=== PATIENT | male | born 1955 | race Caucasian/White ===

== ENCOUNTER → 2021-12-01 11:08 | Outpatient (CLI) | payer MEDICARE, MEDICAID, SELFPAY ==
[2021-12-01 20:07] LABS: COVID19 - ORCAS (NP or Nasal) Negative (Negative)
== END ==
PROVIDERS: PCP Physician Assistant; Visit Provider Family Medicine
DX: Z20.822 Contact with and (suspected) exposure to COVID-19 (principal)
CPT/HCPCS: C9803; U0003

== ENCOUNTER 2021-12-03 07:35 | Day surgery (SDC) | payer MEDICARE, MEDICAID, SELFPAY ==
--- NOTE | 2021-12-03 | PATH_ITS ---
[facility] Accession Number: [id number] No. of containers..03 Tissue . 01 Material submitted: . PART A: cecum - CECAL PART B: colon - ASCENDING COLON POLYP PART C: colon - TRANSVERSE COLON POLYP . 02 Diagnosis: A. Cecum, Biopsy: Tubular adenoma. . B. Ascending Colon Polyp, Biopsy: Tubulovillous adenoma. Negative for high-grade dysplasia or malignancy. . C. Transverse Colon Polyp, Biopsy: Tubular adenoma. MRV 12/07/2021 1029 Local . 02 Electronically signed: . David Bangura MD, PhD, Pathologist NPI- [id number] . 01 Gross description: . Part A: CECAL: Received in formalin is 1 fragment(s) of aly, soft tissue measuring 0.3 x 0.1 x 0.1 cm submitted entirely in 1 cassette(s) Part B: ASCENDING COLON POLYP: Received in formalin is 1 fragment(s) of aly, soft tissue measuring 0.4 x 0.2 x 0.1 cm submitted entirely in 1 cassette(s) Part C: TRANSVERSE COLON POLYP: Received in formalin is 1 fragment(s) of aly, soft tissue measuring 0.3 x 0.3 x 0.2 cm submitted entirely in 1 cassette(s) /CPE 12/04/2021 1458 Local . 02 Pathologist provided ICD-10: D12.0, D12.2, D12.3 . 02 CPT . 758488, 091796, 756977 Specimen Comment: A courtesy copy of this report has been sent to [phone] Performed at: 01 [facility] [address] [place] [address] [address], [place], [place] [id number] MD Alvin Keenan MD Phone: [phone] Performed at: 02 [facility] [address] [place] [id number] MD Ольга Peña MD Phone: [phone]
[2021-12-03 08:23] VITALS: BP 152/92; PULSE 70; RESP 14; TEMP 36.5; O2SAT 99
[2021-12-03 08:24] VITALS: BMI 30.4
[2021-12-03] MEDS: LACTATED RINGERS 1,000 ML 42 ML IV (08:59)
--- NOTE | 2021-12-03 09:27 | PM.HP.1 ---
History of Present Illness History of Present Illness Date Patient Seen: 12/03/21 Time Patient Seen: 09:27 Chief complaint: COLONOSCOPY Narrative: 65-year-old man with a positive Cologuard test. Never had a colonoscopy before. He has never noticed blood or melena. Patient History Medical History (Updated 11/30/21 @ 09:47 by Cassi Vallejo PA-C) H/O gastroesophageal reflux (GERD) Myocardial infarction (~2018) Routine screening for STI (sexually transmitted infection) Screening for colon cancer Screening for prostate cancer Family & Social History Family History (Updated 10/27/21 @ 10:03 by Nia Smalls RN) Mother Hypertension Father Hypertension Stroke Prostate cancer Brother Hypertension Tobacco & Substance use: Smoking Status Former smoker alcohol intake never Substance Use Type does not use Meds Home Medications and Allergies Home Medications Medication Instructions Recorded Confirmed Type thiamine HCl (vitamin B1) 100 mg 100 mg PO DAILY 08/12/21 12/03/21 History tablet cholecalciferol (vitamin D3) 50 50 mcg PO DAILY 08/25/21 11/30/21 History mcg (2,000 unit) capsule carvedilol 12.5 mg tablet 12.5 mg PO BID tab 10/27/21 12/03/21 History lisinopril 20 mg tablet 20 mg PO BID tab 10/27/21 12/03/21 History magnesium amino acid chelate 100 100 mg PO DAILY tab 10/27/21 12/03/21 History mg tablet atorvastatin 20 mg tablet See Rx Instructions .ROUTE 11/19/21 12/03/21 Rx .COMPLEX #90 tab Allergies Allergy/AdvReac Type Severity Reaction Status Date / Time No Known Drug Allergies Allergy Verified 12/03/21 08:20 Exam Vital Signs (past 8 hours): - 12/03/21 08:23 Temperature 97.7 F Pulse Rate 70 Respiratory Rate 14 Blood Pressure 152/92 H Pulse Oximetry 99 Oxygen Delivery Method Room Air Const General: cooperative and healthy appearing Resp Effort & Inspection: normal respiratory effort Assessment & Plan Assessment and plan (1) Positive colorectal cancer screening using Cologuard test: Status: Acute Plan He would like to have his colonoscopy without sedation. We will proceed. COVID-19 COVID-19 status: Negative Result date/Date tested (Pos, Neg/Pending): 12/02/21 Time Spent With Patient Critical Care time: I spent a total of [] minutes of critical care time on this patient's care today; this time is exclusive of procedural time.
--- NOTE | 2021-12-03 09:50 | SUR.PREOP ---
12/[id number]-Cmpm RN, Astrid given information and passed on to Dr Marie. Patient drove self in to hospital, did not set up ride home, or for home for safety during first 24 hours due to fact he decided he did not desire any medication to have procedure done today. States has watched You Tube and seen how procedure was done , and if Casey Chacko could do procedure with out sedation/medication that he too could do it. patient lives on [facility] and will be driving self to [place] later today.
--- NOTE | 2021-12-03 10:03 | PM.OP.COLON ---
Operative Date/Time/Diagnoses Date of procedure: 12/03/21 Time of procedure: 10:03 Pre-op diagnosis: Positive Cologuard test Procedure & Clinicians Study performed: Colonoscopy Same procedure as scheduled: Yes Indications: Positive Cologuard Surgeon: Will Marie Procedure Notes SCOAP/Timeout: Yes Procedure in detail: Procedure: The patient was brought to the endoscopy suite, placed in left lateral decubitus position. The patient was connected to monitoring devices. A time-out was performed. No sedation was administered by patient request. A digital rectal exam was performed and was normal. The scope was then inserted and advanced to the cecum where the appendiceal orifice was identified and photographed. The scope was then slowly withdrawn over greater than 6 minutes. Mucosa was thoroughly inspected. There was a small polyp in the cecum removed with cold forceps. There was a 5 mm sessile polyp in the ascending colon removed with cold snare. There was a small polyp removed with cold forceps in the transverse colon. There were few scattered diverticula in the ascending colon. To The scope was retroflexed in the rectum. No abnormalities were noted other than some dilated hemorrhoidal veins. The scope was straightened and removed. The patient was awakened and brought to recovery. Versed: 0 mg Fentanyl: 0 mcg EBL: 10 mL Findings: Small cecal polyp, 5-6 mm ascending colon polyp, small transverse colon polyp and a few scattered sigmoid diverticula. Scope withdrawal time: 16 Sedation minutes: 0 Post-procedure Recommendations: Will call with biopsy results Disposition: PACU
[2021-12-03 10:12] VITALS: BP 145/70; PULSE 80; RESP 16; TEMP 36.7; O2SAT 100
== END 2021-12-03 10:23 | disposition admitted as inpatient to this hospital (09) ==
PROVIDERS: PCP Physician Assistant; Referring Provider Surgery; Visit Provider Surgery
PROC: 0DJD8ZZ Inspection of Lower Intestinal Tract, Via Natural or Artificial Opening Endoscopic (ICD-10-PCS; CPT 45378; principal; 2021-12-03 09:45)
DX: R19.5 Other fecal abnormalities (principal); K57.30 Diverticulosis of large intestine without perforation or abscess without bleeding; D12.0 Benign neoplasm of cecum; D12.2 Benign neoplasm of ascending colon; D12.3 Benign neoplasm of transverse colon
CPT/HCPCS: 45385; 45380

== ENCOUNTER → 2021-12-10 09:45 | Outpatient (CLI) | payer MEDICARE, MEDICAID, SELFPAY ==
[2021-12-10 18:30] LABS: Add Manual Diff / Slide Review NO; Basophils Absolute Auto 0 /uL (0-100); Basophils Percent Auto 0.9 % (0-2); Eosinophils Absolute Auto 300 /uL (0-450); Eosinophils Percent Auto 6.3 % (2-4); Hematocrit 38.6 % (41-53); Hemoglobin 13.1 g/dL (13.5-17.5); Lymphocytes Absolute Auto 1300 /uL (1100-4500); Lymphocytes Percent Auto 29.6 % (25-40); Mean Corpuscular Hemoglobin 30.3 PG (26-34); Mean Corpuscular Volume 89.2 fL (80-100); Monocytes Absolute Auto 300 /uL (0-900); Monocytes Percent Auto 7.7 % (3-14); Neutrophils Absolute Auto 2400 /uL (1500-7000); Neutrophils Percent Auto 55.5 % (50-75); Platelet Count 203 X10^3/uL (150-400); Red Blood Cell Count 4.33 X10^6/uL (4.5-5.9); Red Cell Distribution Width 13.7 % (11.6-14.8); White Blood Cell Count 4.4 X10^3/uL (4.5-11.0)
[2021-12-10 18:45] LABS: Alanine Aminotransferase 49 IU/L (<50); Albumin 4.3 g/dL (3.5-5.0); Albumin Globulin Ratio 1.7 (1.0-2.8); Alkaline Phosphatase 87 U/L (38-126); Aspartate Aminotransferase 41 IU/L (17-59); BUN Creatinine Ratio 13.6 (6-22); Bilirubin Total 0.4 mg/dL (0.2-1.3); Blood Urea Nitrogen 12 mg/dL (9-20); Calcium 9.2 mg/dL (8.4-10.2); Carbon Dioxide 27 mmol/L (22-32); Chloride 105 mmol/L (98-107); Cholesterol 148 mg/dL (140-199); Estimated Glomerular Filt Rate > 60.0 mL/min (>60); Globulin 2.6 g/dL (1.7-4.1); Glucose 147 mg/dL (80-110); HDL Cholesterol 51 mg/dL (40-60); HEMOLYSIS < 15 (0-50); LDL Cholesterol Calculated 82 mg/dL (<100); Potassium 4.3 mmol/L (3.4-5.1); Sodium 139 mmol/L (137-145); Total Protein 6.9 g/dL (6.3-8.2); Triglycerides 75 mg/dL (35-150)
[2021-12-10 19:11] LABS: Prostate Specific Antigen 0.698 ng/mL (0.10-4.00)
== END ==
PROVIDERS: PCP Physician Assistant; Visit Provider Physician Assistant
DX: Z12.5 Encounter for screening for malignant neoplasm of prostate (principal); I25.10 Atherosclerotic heart disease of native coronary artery without angina pectoris; I10 Essential (primary) hypertension; I48.91 Unspecified atrial fibrillation; R19.5 Other fecal abnormalities
CPT/HCPCS: 80053; 80061; 84153; 85025

== ENCOUNTER → 2021-12-23 08:29 | Outpatient (CLI) | payer MEDICARE, SELFPAY ==
[2021-12-23 18:46] LABS: HEMOLYSIS < 15 (0-50); Iron 86 ug/dL (49-181)
[2021-12-23 18:54] LABS: Hemoglobin A1C% w Est Avg Glu 5.8 % (4.0-6.0)
[2021-12-23 18:56] LABS: Percent Iron Saturation 24 % (20-50); Total Iron Binding Capacity 357 ug/dL (261-462); Transferrin 285 mg/dL (206-381)
[2021-12-23 19:22] LABS: Ferritin 135 ng/mL (18-464)
== END ==
PROVIDERS: PCP Physician Assistant; Visit Provider Physician Assistant
DX: D64.9 Anemia, unspecified (principal); R73.09 Other abnormal glucose
CPT/HCPCS: 82728; 83036; 83540; 83550

== ENCOUNTER → 2022-02-04 10:32 | Outpatient (CLI) | payer MEDICARE, SELFPAY ==
[2022-02-04 19:33] LABS: Add Manual Diff / Slide Review NO; Basophils Absolute Auto 0 /uL (0-100); Basophils Percent Auto 1.1 % (0-2); Eosinophils Absolute Auto 300 /uL (0-450); Eosinophils Percent Auto 7.1 % (2-4); Hematocrit 39.7 % (41-53); Hemoglobin 13.4 g/dL (13.5-17.5); Lymphocytes Absolute Auto 1400 /uL (1100-4500); Mean Corpuscular HGB Conc 33.6 % (30-36); Mean Corpuscular Hemoglobin 30.2 PG (26-34); Mean Corpuscular Volume 89.7 fL (80-100); Monocytes Absolute Auto 400 /uL (0-900); Monocytes Percent Auto 8.9 % (3-14); Neutrophils Absolute Auto 2300 /uL (1500-7000); Neutrophils Percent Auto 50.9 % (50-75); Platelet Count 236 X10^3/uL (150-400); Red Blood Cell Count 4.43 X10^6/uL (4.5-5.9); Red Cell Distribution Width 13.3 % (11.6-14.8); White Blood Cell Count 4.5 X10^3/uL (4.5-11.0)
== END ==
PROVIDERS: PCP Physician Assistant; Visit Provider Physician Assistant
DX: D64.9 Anemia, unspecified (principal)
CPT/HCPCS: 85025

== ENCOUNTER → 2022-02-08 13:03 | Outpatient (CLI) | payer MEDICARE, SELFPAY ==
[2022-02-08 19:02] LABS: Appearance Urine UA CLEAR; Bilirubin Urine UA NEGATIVE (NEGATIVE); Color Urine UA YELLOW; Glucose Urine UA NEGATIVE (Negative); Ketones Urine UA NEGATIVE (NEGATIVE); Leukocyte Esterase Urine UA NEGATIVE (NEGATIVE); Nitrite Urine UA NEGATIVE (Negative); Occult Blood Urine UA NEGATIVE (Negative); Protein Urine UA NEGATIVE (Negative); Urobilinogen Urine UA 0.2 E.U./dL (0.2)
[2022-02-08 19:21] LABS: Bacteria Urine None Seen; Culture Indicated Urine Cult Not Indicated; RBC Urine None Seen (0-5/HPF); WBC Urine None Seen (0-5/HPF)
== END ==
PROVIDERS: PCP Physician Assistant; Visit Provider Physician Assistant
DX: D64.9 Anemia, unspecified (principal)
CPT/HCPCS: 81001

== ENCOUNTER → 2022-04-06 11:10 | Outpatient (CLI) | payer MEDICARE, SELFPAY ==
[2022-04-06 19:35] LABS: Add Manual Diff / Slide Review NO; Basophils Absolute Auto 0 /uL (0-100); Basophils Percent Auto 1.1 % (0-2); Eosinophils Absolute Auto 200 /uL (0-450); Hematocrit 38.9 % (41-53); Hemoglobin 13.2 g/dL (13.5-17.5); Lymphocytes Absolute Auto 1400 /uL (1100-4500); Mean Corpuscular Hemoglobin 30.8 PG (26-34); Mean Corpuscular Volume 90.4 fL (80-100); Monocytes Absolute Auto 500 /uL (0-900); Neutrophils Absolute Auto 2100 /uL (1500-7000); Neutrophils Percent Auto 49.9 % (50-75); Platelet Count 217 X10^3/uL (150-400); Red Cell Distribution Width 13.2 % (11.6-14.8); White Blood Cell Count 4.2 X10^3/uL (4.5-11.0)
== END ==
PROVIDERS: PCP Physician Assistant; Visit Provider Physician Assistant
DX: D64.9 Anemia, unspecified (principal)
CPT/HCPCS: 85025

== ENCOUNTER → 2022-12-20 13:31 | Outpatient (CLI) | payer MEDICARE, SELFPAY ==
[2022-12-20 21:21] LABS: Add Manual Diff / Slide Review NO; Basophils Absolute Auto 100 /uL (0-100); Basophils Percent Auto 1.2 % (0-2); Eosinophils Absolute Auto 300 /uL (0-450); Eosinophils Percent Auto 6.7 % (2-4); Hemoglobin 13.7 g/dL (13.5-17.5); Lymphocytes Absolute Auto 1600 /uL (1100-4500); Mean Corpuscular HGB Conc 33.4 % (30-36); Mean Corpuscular Hemoglobin 29.8 PG (26-34); Mean Corpuscular Volume 89.3 fL (80-100); Monocytes Absolute Auto 600 /uL (0-900); Monocytes Percent Auto 11.1 % (3-14); Neutrophils Absolute Auto 2500 /uL (1500-7000); Platelet Count 225 X10^3/uL (150-400); Red Blood Cell Count 4.59 X10^6/uL (4.5-5.9); Red Cell Distribution Width 13.1 % (11.6-14.8); White Blood Cell Count 5.1 X10^3/uL (4.5-11.0)
[2022-12-20 23:10] LABS: Alanine Aminotransferase 40 IU/L (<50); Albumin 4.2 g/dL (3.5-5.0); Albumin Globulin Ratio 1.5 (1.0-2.8); Alkaline Phosphatase 99 U/L (38-126); Aspartate Aminotransferase 37 IU/L (17-59); BUN Creatinine Ratio 14.8 (6-22); Bilirubin Total 0.3 mg/dL (0.2-1.3); Blood Urea Nitrogen 12 mg/dL (9-20); Calcium 9.1 mg/dL (8.4-10.2); Carbon Dioxide 26 mmol/L (22-32); Chloride 100 mmol/L (98-107); Estimated Glomerular Filt Rate > 60 mL/min (>60); Globulin 2.8 g/dL (1.7-4.1); Glucose 99 mg/dL (80-110); HEMOLYSIS < 15 (0-50); Iron 111 ug/dL (49-181); Potassium 4.7 mmol/L (3.4-5.1); Sodium 137 mmol/L (137-145)
[2022-12-20 23:25] LABS: Percent Iron Saturation 30 % (20-50); Total Iron Binding Capacity 371 ug/dL (261-462); Transferrin 257 mg/dL (206-381)
[2022-12-20 23:41] LABS: Prostate Specific Antigen Scrn 0.888 ng/mL (0.1-4.0)
[2022-12-20 23:45] LABS: Ferritin 138 ng/mL (18-464)
== END ==
PROVIDERS: PCP Physician Assistant; Visit Provider Physician Assistant
DX: D64.9 Anemia, unspecified (principal); R79.89 Other specified abnormal findings of blood chemistry; R93.1 Abnormal findings on diagnostic imaging of heart and coronary circulation; Z12.5 Encounter for screening for malignant neoplasm of prostate
CPT/HCPCS: 80053; 82728; 83540; 83550; 85025; G0103

== ENCOUNTER → 2022-12-29 13:14 | Outpatient (CLI) | payer MEDICARE, SELFPAY ==
--- NOTE | 2022-12-29 13:15 | DI.ECHO.S_ITS ---
Version: 1 Study ID: [id number] [place] [address] Name: MAGNOLIA ERAZO Study Date: 12/29/2022, 1: 58 PM : 1955 BP: 165 / 100 mmHg Gender: Male Height: 69 in Age: 67 Years Weight: 217 lb BSA: 2.14 mA? Ordering: DIXON CROSS Referring: DIXON CROSS Clinician: Vreo Leyva Reason For Study: ASCENDING AORTIC ANEURYSM History: Summary Statements Normal sinus rhythm. Normal LV size and wall thickness. Normal wall motion and LV systolic function. Ejection fraction of 55-60%. Mild left atrial enlargement. Otherwise normal chamber sizes No significant valvular abnormalities. Mildly dilated ascending aorta measuring 4.1 cm. No prior study available for comparison. Procedure: A two-dimensional transthoracic echocardiogram with color flow and Doppler was performed. The study quality was technically adequate. There is no prior echocardiogram noted for this patient. The patient was in sinus rhythm with heart rates between 58-71 bpm during the exam. Left Ventricle: The ejection fraction is estimated to be 60-65%. The left ventricle is normal in size and wall thickness. Right Ventricle: The right ventricle is normal in size and function. Atria: There is no Doppler evidence for an interatrial shunt. The left atrium is mildly dilated. Right atrial size is normal. Mitral Valve: There is mild mitral regurgitation. The mitral valve is normal in structure and function. Aortic Valve: There is mild aortic regurgitation. There is no aortic valve stenosis. The aortic valve is trileaflet. The aortic valve opens well. Tricuspid Valve: There is mild tricuspid regurgitation. The right ventricular systolic pressure is estimated to be at least 27 mmHg based on an estimated right atrial pressure of 3 mm Hg. The tricuspid valve is normal in structure and function. Pulmonic Valve: There is mild pulmonic regurgitation. The pulmonic valve leaflets are thin and pliable; valve motion is normal. Great Vessels: The ascending aorta is mildly enlarged. The aortic root is normal size. The IVC is of normal diameter and collapses greater than 50% with a sniff. This suggests a low right atrial pressure of 3 mm Hg. Pericardium/ Pleura: There is no pericardial effusion. There is no pleural effusion. 2D and M-Mode Measurements and Calculations LVIDd: 5.8 cm LVOT diam: 2.18 cm LVIDs: 3.7 cm Ao root diam: 3.3 cm IVSd: 0.81 cm asc Aorta Diam: 4.1 cm LVPWd: 0.93 cm LV baker. diameter/BSA (cm/m^2): 2.7 LV sys. diameter/BSA (cm/m^2): 1.74 RVD1 (basal): 3.8 cm RVD2 (mid): 3.1 cm TAPSE: 2.41 cm LA A4 area: 24.4 improvement intern? IVC diam: 1.64 cm LA A2 area: 26.2 improvement intern? RA area: 22.5 improvement intern? LA length (vol): 6.3 cm RA long axis: 6.1 cm LA vol: 86.0 ml RA vol: 71.3 ml LA vol index: 40.2 ml/mA? RA : 33.3 ml/mA? Doppler Measurements and Calculations Ao V2 max: 133.1 cm/sec LVOT Max Mansoor: 116.0 cm/sec Ao V2 mean: 90.3 cm/sec LV V1 max P.4 mmHg Ao V2 VTI: 27.8 cm LV V1 VTI: 23.3 cm Ao max P.1 mmHg SV(LVOT): 87.0 ml Ao mean P.7 mmHg SELMA(I,D): 3.1 improvement intern? SELMA(V,D): 3.3 improvement intern? SELMA indexed to BSA (cm^2/m^2): 1.46 sev ratio: 0.84 MV E max mansoor: 75.0 cm/sec MV dec time: 0.19 sec MV A max mansoor: 69.9 cm/sec MV E/A: 1.07 Med Peak E' Mansoor: 9.5 cm/sec Lat Peak E' Mansoor: 11.8 cm/sec E/e' average: 7.1 TR max mansoor: 246.6 cm/sec PA mean P.31 mmHg TR max P.3 mmHg PA V2 max: 104.6 cm/sec Electronically signed by: Kia Watts M.D. 12/29/2022, 3: 47 PM
== END ==
PROVIDERS: PCP Physician Assistant; Referring Provider Physician Assistant; Visit Provider Physician Assistant
DX: I71.9 Aortic aneurysm of unspecified site, without rupture (principal); I08.3 Combined rheumatic disorders of mitral, aortic and tricuspid valves; I77.89 Other specified disorders of arteries and arterioles
CPT/HCPCS: 93306

== ENCOUNTER → 2023-06-29 10:55 | Outpatient (CLI) | payer MEDICARE, SELFPAY ==
[2023-06-29 20:30] LABS: HEMOLYSIS 16 (0-50); Iron 88 ug/dL (49-181)
[2023-06-29 20:34] LABS: Hemoglobin A1C% w Est Avg Glu 5.5 % (4.0-6.0)
[2023-06-29 20:40] LABS: Add Manual Diff / Slide Review NO; Basophils Absolute Auto 0 /uL (0-100); Eosinophils Absolute Auto 200 /uL (0-450); Eosinophils Percent Auto 4.3 % (2-4); Hemoglobin 13.6 g/dL (13.5-17.5); Lymphocytes Absolute Auto 1400 /uL (1100-4500); Lymphocytes Percent Auto 27.5 % (25-40); Mean Corpuscular HGB Conc 34.1 % (30-36); Mean Corpuscular Hemoglobin 30.4 PG (26-34); Mean Corpuscular Volume 89.3 fL (80-100); Monocytes Absolute Auto 600 /uL (0-900); Neutrophils Absolute Auto 2800 /uL (1500-7000); Neutrophils Percent Auto 55.2 % (50-75); Platelet Count 233 X10^3/uL (150-400); Red Blood Cell Count 4.48 X10^6/uL (4.5-5.9); Red Cell Distribution Width 13.2 % (11.6-14.8); White Blood Cell Count 5.1 X10^3/uL (4.5-11.0)
[2023-06-29 20:51] LABS: Percent Iron Saturation 24 % (20-50); Total Iron Binding Capacity 374 ug/dL (261-462); Transferrin 261 mg/dL (206-381)
[2023-06-29 21:07] LABS: Ferritin 129 ng/mL (18-464)
== END ==
PROVIDERS: PCP Family Medicine; Visit Provider Family Medicine
DX: D64.9 Anemia, unspecified (principal); R73.09 Other abnormal glucose
CPT/HCPCS: 82728; 83036; 83540; 83550; 85025

== ENCOUNTER → 2023-12-27 09:44 | Outpatient (CLI) | payer MEDICARE, SELFPAY ==
[2023-12-27 19:05] LABS: HEMOLYSIS < 15 (0-50); Iron 96 ug/dL (49-181)
[2023-12-27 19:07] LABS: Add Manual Diff / Slide Review NO; Basophils Absolute Auto 0 /uL (0-100); Basophils Percent Auto 0.6 % (0-2); Eosinophils Absolute Auto 300 /uL (0-450); Hemoglobin 13.6 g/dL (13.5-17.5); Lymphocytes Absolute Auto 1400 /uL (1100-4500); Lymphocytes Percent Auto 27.6 % (25-40); Mean Corpuscular Hemoglobin 30.7 PG (26-34); Mean Corpuscular Volume 90.5 fL (80-100); Monocytes Absolute Auto 600 /uL (0-900); Monocytes Percent Auto 11.7 % (3-14); Neutrophils Absolute Auto 2800 /uL (1500-7000); Neutrophils Percent Auto 54.1 % (50-75); Platelet Count 209 X10^3/uL (150-400); Red Blood Cell Count 4.42 X10^6/uL (4.5-5.9); Red Cell Distribution Width 13.4 % (11.6-14.8); White Blood Cell Count 5.1 X10^3/uL (4.5-11.0)
[2023-12-27 19:17] LABS: Percent Iron Saturation 28 % (20-50); Total Iron Binding Capacity 342 ug/dL (261-462); Transferrin 272 mg/dL (206-381)
[2023-12-27 20:06] LABS: Alanine Aminotransferase 48 IU/L (<50); Albumin 4.3 g/dL (3.5-5.0); Albumin Globulin Ratio 1.5 (1.0-2.8); Alkaline Phosphatase 99 U/L (38-126); Aspartate Aminotransferase 89 IU/L (17-59); BUN Creatinine Ratio 17.4 (6-22); Bilirubin Total 0.5 mg/dL (0.2-1.3); Blood Urea Nitrogen 15 mg/dL (9-20); Calcium 8.8 mg/dL (8.4-10.2); Carbon Dioxide 29 mmol/L (22-32); Chloride 107 mmol/L (98-107); Cholesterol 140 mg/dL (140-199); Estimated Glomerular Filt Rate > 60 mL/min (>60); Globulin 2.9 g/dL (1.7-4.1); Glucose 113 mg/dL (80-110); HDL Cholesterol 42 mg/dL (40-60); HEMOLYSIS < 15 (0-50); LDL Cholesterol Calculated 83 mg/dL (<100); Potassium 4.4 mmol/L (3.4-5.1); Sodium 140 mmol/L (137-145); Total Protein 7.2 g/dL (6.3-8.2); Triglycerides 74 mg/dL (35-150)
[2023-12-27 20:38] LABS: Ferritin 113 ng/mL (18-464)
== END ==
PROVIDERS: PCP Family Medicine; Visit Provider Family Medicine
DX: Z12.5 Encounter for screening for malignant neoplasm of prostate (principal); I48.91 Unspecified atrial fibrillation; R79.89 Other specified abnormal findings of blood chemistry; I10 Essential (primary) hypertension; D64.9 Anemia, unspecified
CPT/HCPCS: 80053; 80061; 82728; 83540; 83550; 85025; G0103

== ENCOUNTER → 2024-06-26 08:42 | Outpatient (CLI) | payer MEDICARE, SELFPAY ==
[2024-06-26 20:35] LABS: Alanine Aminotransferase 38 IU/L (<50); Albumin 4.1 g/dL (3.5-5.0); Albumin Globulin Ratio 1.5 (1.0-2.8); Alkaline Phosphatase 114 U/L (38-126); Aspartate Aminotransferase 35 IU/L (17-59); Bilirubin Total 0.4 mg/dL (0.2-1.3); Globulin 2.7 g/dL (1.7-4.1); HEMOLYSIS < 15 (0-50); Total Protein 6.8 g/dL (6.3-8.2)
[2024-06-26 20:58] LABS: TSH w/ Reflex to FT4 3.77 uIU/mL (0.47-4.68)
[2024-06-28 00:08] LABS: HBsAg Screen Negative (Negative); Hepatitis A Antibody IgM Negative (Negative); Hepatitis B Core Antibody IgM Negative (Negative); Hepatitis C Antibody Non Reactive (Non Reactive)
== END ==
PROVIDERS: PCP Family Medicine; Visit Provider Family Medicine
DX: R74.01 Elevation of levels of liver transaminase levels (principal); K75.9 Inflammatory liver disease, unspecified
CPT/HCPCS: 80074; 80076; 84443

== ENCOUNTER → 2025-01-01 09:15 | Outpatient (CLI) | payer MEDICARE, OTHER, SELFPAY ==
[2025-01-01 19:49] LABS: Add Manual Diff / Slide Review NO; Basophils Absolute Auto 0 /uL (0-100); Basophils Percent Auto 0.9 % (0-2); Eosinophils Absolute Auto 300 /uL (0-450); Eosinophils Percent Auto 6.7 % (2-4); Hematocrit 41.1 % (41-53); Hemoglobin 13.7 g/dL (13.5-17.5); Lymphocytes Absolute Auto 1300 /uL (1100-4500); Lymphocytes Percent Auto 28.2 % (25-40); Mean Corpuscular HGB Conc 33.3 % (30-36); Mean Corpuscular Hemoglobin 30.2 PG (26-34); Mean Corpuscular Volume 90.7 fL (80-100); Monocytes Absolute Auto 600 /uL (0-900); Monocytes Percent Auto 12.3 % (3-14); Neutrophils Absolute Auto 2400 /uL (1500-7000); Neutrophils Percent Auto 51.9 % (50-75); Platelet Count 215 X10^3/uL (150-400); Red Blood Cell Count 4.53 X10^6/uL (4.5-5.9); Red Cell Distribution Width 12.8 % (11.6-14.8); White Blood Cell Count 4.6 X10^3/uL (4.5-11.0)
[2025-01-01 19:56] LABS: Alanine Aminotransferase 33 IU/L (<50); Albumin 4.4 g/dL (3.5-5.0); Albumin Globulin Ratio 1.8 (1.0-2.8); Alkaline Phosphatase 116 U/L (38-126); Aspartate Aminotransferase 35 IU/L (17-59); BUN Creatinine Ratio 13.5 (6-22); Bilirubin Total 0.5 mg/dL (0.2-1.3); Blood Urea Nitrogen 13 mg/dL (9-20); Calcium 9.1 mg/dL (8.4-10.2); Carbon Dioxide 29 mmol/L (22-32); Chloride 102 mmol/L (98-107); Cholesterol 157 mg/dL (140-199); Estimated Glomerular Filt Rate > 60 mL/min (>60); Globulin 2.5 g/dL (1.7-4.1); Glucose 127 mg/dL (80-110); HDL Cholesterol 43 mg/dL (40-60); HEMOLYSIS < 15 (0-50); Hemoglobin A1C% w Est Avg Glu 5.4 % (4.0-6.0); LDL Cholesterol Calculated 99 mg/dL (<100); Potassium 4.5 mmol/L (3.4-5.1); Sodium 139 mmol/L (137-145); Total Protein 6.9 g/dL (6.3-8.2); Triglycerides 74 mg/dL (35-150)
[2025-01-03 01:07] LABS: Hepatitis B Core Antibody Negative (Negative)
== END ==
PROVIDERS: PCP Physician Assistant; Visit Provider Family Medicine
DX: R73.09 Other abnormal glucose (principal); K75.9 Inflammatory liver disease, unspecified; R74.01 Elevation of levels of liver transaminase levels; I10 Essential (primary) hypertension
CPT/HCPCS: 80053; 80061; 83036; 85025; 86704; 86707

== ENCOUNTER 2025-01-24 06:23 | Day surgery (SDC) | payer MEDICARE, OTHER, SELFPAY ==
--- NOTE | 2025-01-24 | PATH_ITS ---
[facility] Accession Number: [id number] No. of containers..02 Tissue . 01 Material submitted: . PART A: colon - ASCENDING POLYP PART B: colon - TRANSVERSE POLYPS . 01 Diagnosis: A. ASCENDING COLON: Tubulovillous adenoma. . B. TRANSVERSE COLON: Tubular adenomas. MRV 01/25/2025 1537 Local . 01 Electronically signed: . Dianna Hatfield DO, Pathologist NPI- [id number] . 01 Gross description: . Part A: ASCENDING POLYP: Received in formalin are 3 fragment(s) of aly, soft tissue measuring 0.2 x 0.2 x 0.2 cm to 0.7 x 0.6 x 0.5 cm submitted entirely in 1 cassette(s) Part B: TRANSVERSE POLYPS: Received in formalin are 3 fragment(s) of aly, soft tissue measuring 0.2 x 0.2 x 0.2 cm to 0.7 x 0.3 x 0.3 cm submitted entirely in 1 cassette(s) /KAREY 01/24/2025 2338 Local . 01 Pathologist provided ICD-10: Z12.11 . 01 CPT . 489129, 314439 Specimen Comment: A courtesy copy of this report has been sent to [phone] Performed at: 01 [facility] [address], [place], [place] [id number] MD Alvin Keenan MD Phone: [phone]
[2025-01-24 07:05] VITALS: BP 159/90; PULSE 55; RESP 17; TEMP 36.1; O2SAT 97
[2025-01-24] MEDS: LACTATED RINGERS 1,000 ML 42 ML IV (07:22)
--- NOTE | 2025-01-24 08:09 | PM.HP.IH.1 ---
History of Present Illness History of Present Illness Date Patient Seen: 01/24/25 Time Patient Seen: 08:09 Chief complaint: Screening Colonoscopy Narrative: Lu is a 69-year-old man who presents for colonoscopy. His last colonoscopy was in 2021 and he had some polyps removed. [facility] Medical History (Updated 01/24/25 @ 08:10 by Will Marie MD) Atrial flutter Aortic aneurysm Elevated glucose level Anemia Laceration of finger Positive colorectal cancer screening using Cologuard test H/O gastroesophageal reflux (GERD) Screening for colon cancer Screening for prostate cancer Routine screening for STI (sexually transmitted infection) Family History (Updated 10/27/21 @ 10:03 by Nia Smalls RN) Mother Hypertension Father Hypertension Stroke Prostate cancer Brother Hypertension Social History Smoking Status: Former smoker alcohol intake: former Meds Home Medications and Allergies Home Medications Medication Instructions Recorded Confirmed Type thiamine HCl (vitamin B1) 100 mg 100 mg PO DAILY 08/12/21 01/24/25 History tablet cholecalciferol (vitamin D3) 50 50 mcg PO DAILY 08/25/21 01/24/25 History mcg (2,000 unit) capsule magnesium amino acid chelate 100 100 mg PO DAILY 10/27/21 01/24/25 History mg tablet lisinopril 20 mg tablet 10 mg PO BID 07/16/24 01/24/25 History atorvastatin 20 mg tablet See Rx Instructions .Route 07/19/24 01/24/25 Rx .COMPLEX #90 tabs carvedilol 25 mg tablet 25 mg PO BID for blood pressure. 09/08/24 01/24/25 Rx take every day even if normal. #90 tabs ascorbic acid (vitamin C) 500 mg 500 mg PO DAILY 09/12/24 01/24/25 History tablet hydrocortisone 2.5 % topical cream 1 applic topical TID PRN itching 11/08/24 01/24/25 Rx #30 grams pantoprazole 20 mg tablet,delayed 20 mg PO DAILY reflux #30 tabs 01/08/25 01/24/25 Rx release Allergies Allergy/AdvReac Type Severity Reaction Status Date / Time No Known Drug Allergies Allergy Verified 01/24/25 06:56 Exam Vital Signs (past 8 hours): - 01/24/25 07:05 Temperature 96.9 F L Pulse Rate 55 L Respiratory Rate 17 Blood Pressure 159/90 H Pulse Oximetry 97 Oxygen Delivery Method Room Air Oxygen Delivery Method Room Air Const General: No acute distress Resp Effort & Inspection: normal respiratory effort Assessment & Plan Assessment and plan (1) History of colon polyps: Status: Acute Plan He prefers to attempt to have his colonoscopy without sedation. Time-Based Coding :: [TOTAL MINUTES] spent with patient and on the chart (including review of chart, obtaining history, exam, reviewing outside data, placing orders, documenting exam and treatment plan, and counseling patient) on [DATE]. [employer] Document charge(s): No
--- NOTE | 2025-01-24 08:49 | PM.OP.COLON ---
Operative Date/Time/Diagnoses Date of procedure: 01/24/25 Time of procedure: 08:49 Pre-op diagnosis: History of polyps Post-op diagnosis: same Procedure & Clinicians Study performed: Colonoscopy Same procedure as scheduled: Yes Surgeon: Will Marie Procedure Notes Procedure in detail: Surgeon: Will Marie MD Anesthesia: Ольга Gee CRNA (no sedation was required) Procedure: The patient was brought to the endoscopy suite, placed in left lateral decubitus position. The patient was connected to monitoring devices. A time-out was performed. Sedation was administered. Once the patient was adequately sedated, a digital rectal exam was performed and was normal. The scope was then inserted and advanced to the cecum where the appendiceal orifice was identified and photographed. The scope was then slowly withdrawn over greater than 6 minutes. The mucosa was thoroughly inspected. The terminal ileum was intubated and no abnormalities were seen. There was a 7 mm sessile polyp in the ascending colon removed with a cold snare. There were 2 5 mm polyps in the transverse colon removed with cold snare and sent together. The scope was retroflexed in the rectum. No other abnormalities were found. The scope was straightened and removed. The patient was awakened and brought to recovery. Scope withdrawal time: 13 minutes Sedation time: 18 minutes EBL: 3 mL Findings: A 7 mm sessile polyp in the ascending colon and 2 5 mm polyps in the transverse colon Post-procedure Disposition: PACU
[2025-01-24 08:54] VITALS: BP 177/97; PULSE 64; RESP 20; TEMP 36; O2SAT 99
[2025-01-24 09:08] VITALS: BP 166/99
== END 2025-01-24 09:08 | disposition home or self-care (01) ==
PROVIDERS: PCP Physician Assistant; Referring Provider Surgery; Visit Provider Surgery
PROC: 0DJD8ZZ Inspection of Lower Intestinal Tract, Via Natural or Artificial Opening Endoscopic (ICD-10-PCS; CPT 45378; principal; 2025-01-24 08:15)
DX: Z12.11 Encounter for screening for malignant neoplasm of colon (principal); Z86.0100 Personal history of colon polyps, unspecified; Z87.891 Personal history of nicotine dependence; D12.2 Benign neoplasm of ascending colon; D12.3 Benign neoplasm of transverse colon
CPT/HCPCS: 45385